=== PATIENT | male | born 1955 | race Caucasian/White ===

== ENCOUNTER → 2018-05-22 | Outpatient (CLI) | payer BC | END | disposition home or self-care (01) | LOC: CFH 06:55 | PROVIDERS: ATTEND Internal Medicine Cardiovascular Disease | DX: I10 Essential (primary) hypertension (principal); E78.5 Hyperlipidemia, unspecified; I25.9 Chronic ischemic heart disease, unspecified; Z82.49 Family history of ischemic heart disease and other diseases of the circulatory system | CPT/HCPCS: 78452; 93017; 93306; A9502 ==

== ENCOUNTER 2018-06-01 11:49 | Day surgery (SDC) | payer BC ==
[~2018-06-01] VITALS: Ht 177.8 cm; Wt 82.7 kg
[2018-06-01 12:45] VITALS: BP 138/90
[2018-06-01] MEDS ORDERED: ASPI-496 PO (12:57)
[2018-06-01] MEDS ORDERED: ATOR40TA PO (13:00)
[2018-06-01] MEDS ORDERED: HYDR12.58 PO (13:00)
[2018-06-01] MEDS ORDERED: QUIN40TA15 PO (13:00)
[2018-06-01] MEDS ORDERED: FENTANYL PF 100 MCG/2ML ONE (14:14)
[2018-06-01] MEDS ORDERED: MIDAZOLAM 1 MG/ML, 2ML ONE (14:14)
[2018-06-01] MEDS ORDERED: DIPHENHYDRAMINE 50 MG/ML, 1ML ONE (14:14)
[2018-06-01] MEDS ORDERED: VERAPAMIL 2.5 MG/ML, 2ML ONE (14:15)
[2018-06-01] MEDS ORDERED: LIDOCAINE-MPF 2%, 2ML ONE (14:15)
[2018-06-01] MEDS ORDERED: SODIUM CHLORIDE 0.9% 1,000 ML IV SCH (14:54)
== END 2018-06-01 17:24 | disposition home or self-care (01) ==
LOC: CACL 11:49
PROVIDERS: ATTEND Internal Medicine Cardiovascular Disease
DX: I25.10 Atherosclerotic heart disease of native coronary artery without angina pectoris (principal); E78.2 Mixed hyperlipidemia; I10 Essential (primary) hypertension; I25.9 Chronic ischemic heart disease, unspecified; Z72.89 Other problems related to lifestyle; Z79.82 Long term (current) use of aspirin; Z79.899 Other long term (current) drug therapy; Z82.49 Family history of ischemic heart disease and other diseases of the circulatory system
CPT/HCPCS: 93458; 93571; 99156; C1769; C1894; J1200; J1644; J2250; J3010; J3490; Q9967

== ENCOUNTER → 2019-04-17 | Outpatient (CLI) | payer BC ==
[~2019-04-17] MED LIST: ASPI-496 PO; ATOR40TA PO; HYDROCHLOROTH12.5 MG PO; QUIN40TA15 PO
== END | disposition home or self-care (01) ==
LOC: CVU 08:10
PROVIDERS: ATTEND Internal Medicine Cardiovascular Disease
DX: I65.23 Occlusion and stenosis of bilateral carotid arteries (principal); E78.5 Hyperlipidemia, unspecified; I10 Essential (primary) hypertension
CPT/HCPCS: 78452; 93017; 93880; A9502

== ENCOUNTER 2020-03-30 07:40 | Outpatient (CLI) | payer BC | END 2020-03-30 23:59 | disposition home or self-care (01) | LOC: CFH 07:40 | PROVIDERS: ATTEND Internal Medicine Cardiovascular Disease | DX: R93.1 Abnormal findings on diagnostic imaging of heart and coronary circulation (principal); Z82.49 Family history of ischemic heart disease and other diseases of the circulatory system | CPT/HCPCS: 78452; 93017; A9502 ==

== ENCOUNTER 2021-05-07 06:23 | Day surgery (SDC) | payer MEDICARE ==
[~2021-05-07] VITALS: Ht 177.8 cm; Wt 86.6 kg
[2021-05-07 06:53] VITALS: BP 163/90
[2021-05-07] MEDS ORDERED: IRBE300T8 PO (06:57)
[2021-05-07] MEDS ORDERED: CHLORHEXIDINE 15 ML UDC PO ONE (07:00)
[2021-05-07] MEDS ORDERED: LACTATED RINGERS 1,000 ML IV SCH (07:00)
[2021-05-07 07:26] LABS: ALANINE AMINOTRANSFERASE 37 U/L (12-78); ANION GAP 7 mmol/L (5-15); CALCIUM 9.8 mg/dL (8.5-10.1); CHLORIDE 109 mmol/L (98-107); CREATININE 0.75 mg/dL (0.7-1.3)
[2021-05-07 07:29] LABS: ALKALINE PHOSPHATASE 80 U/L (45-117); BILIRUBIN,TOTAL 1.3 mg/dL (0.2-1.0); TOTAL PROTEIN 7.3 g/dL (6.4-8.2)
[2021-05-07] MEDS ORDERED: MIDAZOLAM 1 MG/ML, 2ML ONE (07:36)
[2021-05-07] MEDS ORDERED: FENTANYL PF 100 MCG/2ML ONE (07:36)
[2021-05-07] MEDS ORDERED: MEPERIDINE/PF 25MG/0.5ML IVPush PRN (08:00)
[2021-05-07] MEDS ORDERED: OXYcodone 5 MG/5 ML ORAL.SOL UDC PO PRN (08:00)
[2021-05-07] MEDS ORDERED: LABETALOL 5MG/ML, 20ML IV PRN (08:00)
[2021-05-07] MEDS ORDERED: MIDAZOLAM 1 MG/ML, 2ML IV PRN (08:00)
[2021-05-07] MEDS ORDERED: ACETAMINOPHEN 325 MG TABLET PO PRN (08:00)
[2021-05-07] MEDS ORDERED: HYDROmorphone 1 MG/ML, 1ML INJ IVPush PRN (08:00)
[2021-05-07] MEDS ORDERED: PROMETHAZINE 25 MG/ML, 1ML IVPush PRN (08:00)
[2021-05-07] MEDS ORDERED: FENTANYL PF 100 MCG/2ML IV PRN (08:00)
[2021-05-07] MEDS ORDERED: BUPIVACAINE/PF 0.5% ONE ×2 (08:07→09:22)
[2021-05-07] MEDS ORDERED: KETOROLAC 30 MG/1 ML ONE (08:24)
[2021-05-07] MEDS ORDERED: PROPOFOL 10 MG/ML, 20ML ONE (09:22)
[2021-05-07] MEDS ORDERED: CEFAZOLIN 1,000 MG ONE (09:22)
[2021-05-07] MEDS ORDERED: DEXAMETHASONE 4 MG/ML, 1ML ONE (09:22)
[2021-05-07] MEDS ORDERED: LIDOCAINE-MPF 2% ,5ML ONE (09:22)
[2021-05-07] MEDS ORDERED: ONDANSETRON 2MG/ML, 2ML ONE (09:22)
[2021-05-07] MEDS ORDERED: LABETALOL 5MG/ML, 20ML ONE (09:40)
[2021-05-07] MEDS ORDERED: hydrALAzine 20 MG/ML, 1ML ONE (10:07)
[2021-05-07] MEDS ORDERED: hydrALAzine 20 MG/ML, 1ML IV PRN (10:30)
== END 2021-05-07 11:25 | disposition home or self-care (01) ==
LOC: OUT 06:23
PROVIDERS: ATTEND Orthopaedic Surgery Foot and Ankle Surgery
DX: S86.011A Strain of right Achilles tendon, initial encounter (principal); I10 Essential (primary) hypertension; E78.5 Hyperlipidemia, unspecified; Z20.822 Contact with and (suspected) exposure to COVID-19; Z79.899 Other long term (current) drug therapy; X50.1XXA Overexertion from prolonged static or awkward postures, initial encounter; Y93.89 Activity, other specified; Y92.89 Other specified places as the place of occurrence of the external cause; Y99.8 Other external cause status
CPT/HCPCS: 27652; 36415; 64415; 64447; 80053; 87635; 93005; C5271; J0690; J1100; J1885; J2250; J2405; J2704; J3010; J7120; Q4100